=== PATIENT | male | born 1975 ===

== ENCOUNTER 2025-01-03 08:34 | Outpatient (AMB) | payer BC, SELFPAY ==
--- NOTE | 2025-01-03 08:38 | MHC.PC.OV ---
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 Annual physical Intake Note: patient here for new patient visit requesting CPE Barrel Roller Required: No Allergies No Known Allergies Allergy (Verified 01/03/25 09:01) Medication List - Last Reconciled 01/03/25 by Deven Hooper CNP albuterol sulfate 90 mcg/actuation (Ventolin HFA) 2 puffs inhalation Q6H PRN budesonide-formoterol 160-4.5 mcg/actuation (Symbicort) 2 puffs inhalation BID fluocinolone 0.01% 1 appl topical .prn ketoconazole 1% 1 appl topical 2XW lisinopril 10 mg PO DAILY Tobacco use date assessed: 01/03/25 Dental Screening Dental Screen Date: 01/03/25 Did you have a dental visit in the last 12 months?: Yes Did you have a dental problem in the last 6 months where you did not have access to dental care?: No Was dental information given to patient?: Patient has dentist HPI HPI Comments History of Present Illness Details 49-year-old male presents to establish care. He admits to taking his medications as prescribed without adverse reactions. Prior PCP? - [facility] Last office visit/CPE/labs - 1 year ago Acute issue(s) - None Past Medical History - HTN, asthma, adrenal adenoma, right knee meniscus tear, skin moles to back Surgical History - Appendectomy, right knee meniscus tear tear Family History - Dad: HTN, alcohol abuse - MGM: HTN Social History - Nonsmoker. Does not vape. Drinks 2-3 beers or wine once or twice weekly. Denies recreational drug use - Has been making healthy dietary choices. Exercises routinely. Generally sleep well Health maintenance - Last eye exam was over 10 years ago. Referred to Ophthalmology for routine eye exam - Last dental visit was a month ago - Last tetanus vaccine unknow but with the last 10 years - Vaccinated for the flu with his employer last month Specialists - [facility] Medical History (Updated 01/03/25 @ 09:22 by Deven Hooper CNP) Right knee meniscal tear Adrenal adenoma High blood pressure Asthma Surgical History (Updated 01/03/25 @ 08:58 by MEHREEN Lemos) Hx of appendectomy Family History (Updated 01/03/25 @ 08:58 by MEHREEN Lemos) Father Alcohol abuse High blood pressure Mother High blood pressure Social History (Updated 01/03/25 @ 08:47 by MEHREEN Lemos) Housing: House Patient Tobacco Use Status: Never used Tobacco e-Cigarette/Vaping Use: Never Used Second Hand Smoke Exposure: No service: No Current occupational status: employed 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 1. Little interest or pleasure in doing things: not at all 2. Feeling down, depressed, or hopeless: not at all 3. Trouble falling or staying asleep, or sleeping too much: not at all 4. Feeling tired or having little energy: not at all 5. Poor appetite or overeating: not at all 6. Feeling bad about yourself - or that you are a failure or have let yourself or your family down: not at all 7. Trouble concentrating on things, such as reading the newspaper or watching television: not at all 8. Moving or speaking so slowly that other people could have noticed. Or the opposite - being so fidgety or restless that you have been moving around a lot more than usual: not at all 9. Thoughts that you would be better off or of hurting yourself in some way: not at all Total score: 0 Depression Screening Interpretation: Negative Depression Screening Done: Yes 08189 - PHQ-9 Billing: Yes Source: Developed by Drs. Oral Hernandez, Esther Sears, Arthur Munoz and colleagues, with an educational rachel from [employer]. Thrive Questionnaire Date Thrive assessed: 01/03/25 I am a: Patient What is your living situation today?: I have a steady place to live Within the past 12 months, did the food you bought not last and you didn't have the money to get more?: Never true Within the past 12 months, did you worry whether your food would run out before you got money to buy more?: Never true Do you have trouble paying for medicines?: No Do you have trouble getting transportation to medical appointments?: No Do you have trouble paying your heating and electricity bill?: No Do you have trouble taking care of your child, family member or friend?: No Do you have trouble with day-to-day activities such as bathing, preparing meals, shopping, managing finances, etc.?: No Are you currently unemployed and looking for a job?: No Are you interested in more education?: No Please select the resources that you would like help with: None Currently or been in a relationship where the following occur: No concerns reported THRIVE Score: 0 AUDIT C Alcohol Use Questionnaire (AUDIT-C) 1. How often do you have a drink containing alcohol?: 2-4 times a month 2. How many drinks containing alcohol do you have on a typical day when you are drinking?: 3 or 4 3. How often do you have six or more drinks on one occasion?: Less than monthly Total Score: 4 Score Reviewed/Action Taken: Yes AKILAH-7 AMB Questionnaire AKILAH-7 Date AKILAH - 7 assessed: 01/03/25 Feeling nervous, anxious, or on edge: 0 = Not at all Not being able to stop or control worryin = Not at all Worrying too much about different things: 0 = Not at all Trouble relaxin = Not at all Being so restless that it is hard to sit still: 0 = Not at all Becoming easily annoyed or irritable: 0 = Not at all Feeling afraid as if something awful might happen: 0 = Not at all Total AKILAH-7 score (0-4 normal; 5-9 mild; 10-14 moderate; 15-21 severe): 0 Source: Developed by Drs. Oral Hernandez, Esther Sears, Arthur Munoz and colleagues, with an educational rachel from [employer]. AKILAH-7 Assessment Billing AKILAH-7 Assessment Tool: AKILAH-7 Assessment 36297 ACT Questionnaire In the past 4 weeks, how much of the time did your asthma keep you from getting as much done at work, school or at home?: None of the time During the past 4 weeks, how often have you had shortness of breath?: 1-2 times a week During the past 4 weeks, how often did your asthma symptoms wake you up at night or earlier than usual in the morning?: Once or twice per week During the past 4 weeks, how often have you had to use your rescue inhaler or nebulizer medication?: 2-3 times a week How would you rate your asthma control during the past 4 weeks?: Well controlled ACT Interpretation: Positive Score: 20 Review of Systems Const Details: Denies chills, Denies fatigue, Denies fever(s), Denies headache(s) and Denies weakness HEENT Denies change in vision, Denies dizziness, Denies headache(s), Denies hearing loss, Denies nasal congestion, Denies sinus pain, Denies sinus pressure and Denies sore throat Card Denies chest pain, Denies lightheadedness, Denies dyspnea and Denies other (palpitations) Resp Denies cough, Denies dyspnea and Denies wheezing GI Denies abdominal pain, Denies melena, Denies hematochezia, Denies change in bowel habits, Denies dyspepsia and Denies nausea Denies hematuria and Denies dysuria Musc Denies abnormal gait, Denies myalgias, Denies arthralgias, Denies numbness and Denies tingling Skin/Breast Reports skin moles, Denies rash, Denies unusual bruising and Denies wounds Neuro Denies abnormal gait, Denies dizziness, Denies headache(s), Denies memory loss, Denies numbness, Denies Sensory deficit (Neuro), Denies tingling and Denies weakness Psych Denies anxiety, Denies depression and Denies memory loss Endo Denies cold intolerance, Denies fatigue, Denies heat intolerance, Denies polydipsia and Denies polyuria Enmanuel/Lymph Denies easy bleeding and Denies easy bruising Aller/Immun Denies wheezing Physical exam (Primary Care) Vital Signs: Last Vital Signs Temp 97.8 F 01/03/25 08:47 Pulse 66 01/03/25 08:47 Resp 16 01/03/25 08:47 BP 140/74 H 01/03/25 08:47 Pulse Ox 100 01/03/25 08:47 Oxygen Delivery Method Room Air 01/03/25 08:47 BMI result Body Mass Index 33.1 Tobacco/Smoking Status: Tobacco use Status Tobacco use date assessed 01/03/25 01/03/25 08:50 Patient Tobacco Use Status Never used Tobacco 01/03/25 08:50 e-Cigarette/Vaping Use Never Used 01/03/25 08:50 PHQ-9: PHQ-9 Score PHQ-9: Total score 0 01/03/25 08:50 Depression Screening Interpretation: Negative Thrive Assessment: Date of Thrive Assessment Date Thrive assessed 01/03/25 01/03/25 08:50 Currently or been in a relationship where the following occur: No concerns reported Const Other: General: no acute distress, well developed, alert and awake Nutritional Appearance: well nourished Orientation/consciousness: patient oriented x3 HENMT Head: Yes normocephalic and Yes atraumatic Ears: hearing grossly normal bilaterally and TM's normal bilaterally General nose exam: Normal external nose present and Normal nares present Mouth: Normal oral and palatal mucosa present and moist mucous membranes Teeth and gingiva: dentition normal Throat: Yes oropharynx normal Eyes Pupils: Equal, round and reactive pupils present and Pupil accommodation reflex normal EOM: EOMs intact bilaterally Neck Neck: Yes normal visual inspection, Yes no lymphadenopathy and Yes trachea midline Thyroid: Thyroid normal Carotids: no bruits Lymphatic: no lymphadenopathy noted Chest Chest palpation & inspection: normal inspection of the chest Resp Effort & Inspection: normal respiratory effort Auscultation: clear to auscultation bilaterally Cardio Rate: regular rate Rhythm: regular rhythm Heart sounds: S1 normal heart sound present, S2 normal heart sound present, no gallops, no murmurs and no rubs Bruits: no abdominal aortic bruits and no carotid bruits GI Palpation (GI): No Abdominal aortic bruit present, Soft to palpation, nontender, No hepatosplenomegaly present and No Rebound tenderness present Auscultation: normal bowel sounds General: Yes no CVA tenderness Back/Spine/Pelvis Back: no CVA tenderness Cervical Spine: cervical ROM normal and No Cervical spine tenderness Thoracic/Lumbar Spine: thoraco-lumbar ROM normal, No pain with thoraco-lumbar ROM, No thoracic spinal tenderness and No lumbar spinal tenderness Skin General: warm and dry. Normal skin color. Normal skin turgor Lesions: Small/different sizes, light brown, round moles scattered to back, appears benign Rashes: no rashes Trauma: no lacerations or abrasions Wounds: no wounds Nails: normal Neuro General: patient oriented x3, gait normal and CN's II-XI intact bilaterally Cranial nerves: Yes Equal, round and reactive pupils present Cognition (Neuro): normal cognition Gait exam (Neuro): Normal gait present Motor exam (neuro): 5/5 motor strength present throughout Sensory Exam: No Sensory deficit (Neuro) Deep tendon reflexes (DTR's): Right patellar reflex intensity grade: 2+ and Left patellar reflex intensity grade: 2+ Extrem General: Yes normal to inspection, No edema and No calf tenderness Psych Appearance: grossly normal Affect: normal affect Attitude: cooperative Thought process: Normal thought process present Coding Level of Care Code New Pt Level 3 (62263) New Pt Prev Care 40-64y(58277) Diagnoses Normal physical examination, routine Z00.00 High blood pressure I10 Asthma J45.909 Eye exam, routine Z01.00 Numerous skin moles D22.9 Laboratory tests ordered as part of a complete physical exam (CPE) Z00.00 Additional Codes AKILAH-7 Assessment Billing - AKILAH-7 Assessment Tool: AKILAH-7 Assessment 43242 ([id number]) PHQ-9 - 00342 - PHQ-9 Billing: Yes ([id number]) Asthma Control Questionnaire - ACT Interpretation: Positive ([id number]) Assessment & Plan Assessment & Plan (1) Normal physical examination, routine: Code(s): Z00.00 - Encounter for general adult medical examination without abnormal findings Category: Medical Plan: No significant functional limitations noted. Continue current treatment regimen. Healthy diet and routine exercise encouraged. He has been fasting for at least 10 hours and will perform lab work today. Advised to follow-up for telehealth visit in 2-3 weeks for labs review. Return sooner with symptoms or concerns. Verbalized understanding and agreed with the plan. (2) High blood pressure: Code(s): I10 - Essential (primary) hypertension Category: Medical Plan: Resting blood pressure is 110/74, within goal of less than 140/90. Continue current treatment regimen. Low-sodium diet encouraged. Will continue to monitor. Verbalized understanding and agreed with the plan. (3) Asthma: Code(s): J45.909 - Unspecified asthma, uncomplicated Category: Medical Plan: ACT score is 20, well control asthma. Continue current treatment regimen. (4) Eye exam, routine: Code(s): Z01.00 - Encounter for examination of eyes and vision without abnormal findings Category: Medical Plan: Last eye exam was over 10 years ago. Referred to Ophthalmology for routine eye exam. (5) Numerous skin moles: Code(s): D22.9 - Melanocytic nevi, unspecified Category: Medical Plan: Small/different sizes, light brown, round moles scattered to back, appears benign. Followed by Dermatology. (6) Laboratory tests ordered as part of a complete physical exam (CPE): Code(s): Z00.00 - Encounter for general adult medical examination without abnormal findings Category: Medical Plan: Fasting labs ordered as part of a complete physical exam. Advised to fast for at least 10 hours before getting labs drawn. May drink water Verbalized understanding and agreed with treatment plan. Orders: Orders Complete Blood Count Auto Diff Today Z00.00 - Encounter for general adult medical examination without abnormal findings Comprehensive [place]. Panel Fast Today Z00.00 - Encounter for general adult medical examination without abnormal findings Lipid Panel Today Z00.00 - Encounter for general adult medical examination without abnormal findings PSA, Ultra Sensitive Today Z00.00 - Encounter for general adult medical examination without abnormal findings TSH reflex Free T4 Today Z00.00 - Encounter for general adult medical examination without abnormal findings UA CC w/rflx Micro + Cult Today Z00.00 - Encounter for general adult medical examination without abnormal findings Microalbumin, Random (w Creat) Today Z00.00 - Encounter for general adult medical examination without abnormal findings Vitamin D 25-OH Total Today Z00.00 - Encounter for general adult medical examination without abnormal findings Referrals Ophthalmology Referral Z01.00 - Encounter for examination of eyes and vision without abnormal findings
[2025-01-03 08:47] VITALS: BP 140/74; PULSE 66; RESP 16; TEMP 36.6; O2SAT 100; BMI 33.1
--- OUTSIDE RECORDS SUMMARY | 2025-01-03 09:02 | XMS_ITS | Clinical Summary ---
Author Organization [facility] Address [address] [place] [id number] Phone Care Team Providers Care A Auxiliary Name Role Phone Herb Nunes MD Primary Care Provider + Allergies No known active allergies Medications albuterol 90 mcg/actuation inhaler INHALE 2 PUFFS BY MOUTH FOUR TIMES DAILY NEEDED FOR WHEEZING OR 15 MINUTES BEFORE EXERCISE 09/10/2023 Active atorvastatin (LIPITOR) 40 MG tablet Take 1 tablet by mouth every morning. 09/18/2023 Active SYMBICORT 160-4.5 mcg/actuation inhaler Inhale 2 puffs into the lungs 2 (two) times a day. 11/23/2023 Active lisinopril (PRINIVIL,ZESTR IL) 10 MG tablet Take 1 tablet by mouth every morning. 11/29/2023 Active fluocinolone (SYNALAR) 0.01 % external solution APPLY A THIN LAYER TO AFFECTED LAYER TWICE DAILY FOR 2 WEEKS THEN ATKE 1 WEEK OFF TO THE ALMARAZ REPEAT IF NEEDED 10/14/2024 Active ketoconazole (NIZORAL) 2 % shampoo APPLY AND LATHER TO SCALP AND FACE LEAVE ON FOR 3-5 MINUTES USE 2-3 TIMES PER WEEK NEEDED FOR SYMPTOMS 10/14/2024 Active omeprazole (PRILOSEC) 40 MG capsule Take 1 capsule by mouth every morning. 11/12/2024 Active Active Problems Problem Noted Date Diagnosed Date Supraglottic edema 12/08/2023 Encounters Date Type Department Care Team Description 11/29/2024 6:00 PM EDT Office Visit [facility] [address] [address] Annamarie Omalley, ADRIÁN Sore throat (Primary Dx) from Last 3 Months Social History Tobacco Use Types Packs/Day Years Used Date Smoking Tobacco: Never Smokeless Tobacco: Never Education Answer Date Recorded Are you interested in more education? Not on radha e 06/28/2022 Are you concerned about learning? Not on file 06/28/2022 No 06/28/2022 No 06/28/2022 Digital Access Answer Date Recorded No 07/27/2022 No 07/27/2022 Reliable internet access at home? Not on file 07/27/2022 Device with a working camera? Not on file Sex and Gender Information Value Date Recorded Sex Assigned at Not on file Legal Sex Male 8:29 AM EDT Gender Identity Not on file Sexual Orientation Not on file Last Filed Vital Signs Vital Sign Reading Time Taken Comments Blood Pressure 136/94 11/29/2024 6:21 PM EDT Pulse 86 11/29/2024 6:21 PM EDT Temperature 36.8 C (98.2 F) 11/29/2024 6:21 PM EDT Respiratory Rate 16 11/29/2024 6:21 PM EDT Oxygen Saturation 98% 11/29/2024 6:21 PM EDT Inhaled Oxygen Concentration - - Weight 93 kg (205 lb) 11/29/2024 6:21 PM EDT Height - - Body Mass Index - - Plan of Treatment Health Maintenance Due Date Last Done Comments Adult Td,Tdap Booster 1976 DEPRESSION SCREENING 1988 HEPATITIS C SCREENING 1994 HIV ONE-TIME SCREENING (18-6 5 YEARS) 1994 COLOGUARD 2021 COLONOSCOPY 2021 COLORECTAL CANCER SCREENING 2021 FIT TEST 2021 FOBT 2021 SIGMOIDOSCOPY 2021 VIRTUAL COLONOSCOPY 2021 INFLUENZA VACCINE (#1) 2024 COVID-19 VACCINE (2024-2 6 season) 2024 12/25/2020, 04/12/2020, 03/15/2020 CREATININE LEVEL 01/27/2025 01/28/2024 POTASSIUM LEVEL 01/27/2025 01/28/2024 BLOOD PRESSURE 05/29/2025 11/29/2024 LIPID PANEL 01/27/2029 01/28/2024 SMOKING STATUS SCREENING (On ce After 26 Yrs) Completed 11/29/2024 HEPATITIS A VACCINES Aged Out No long er eligible based on patient's age to complete this topic HIB VACCINES Aged Out No longer eligi ble based on patient's age to complete this topic MENINGOCOCCAL VACCINES (ACWY) Aged Out No longer eligible based on patient's age to complete this topic MENINGOCOCCAL VACCINES (B) Aged Out N o longer eligible based on patient's age to complete this topic PNEUMOCOCCAL VACCINES (0-49 years) Aged Out No longer eligible b ased on patient's age to complete this topic Medical Devices Not on file Procedures Procedure Name Priority Date/Time Associated Diagnosis Comments POCT COVID-19 RT-PCR/INFLUENZA A & B/RSV CEPHEID Routine 11/29/2024 6:56 PM EDT Sore throat POCT RAPID STREP A Routine 11/29/2024 6: 30 PM EDT Sore throat LIPID PANEL Routine 01/28/2024 9:26 AM EST Hypercholesteremia Pre-diabetes Hypertension, unspecified type BASIC METABOLIC PANEL (BMP) Routine 01/28/2024 9:26 AM EST Hypercholesteremia Pre-diabetes Hypertension, unspecified type from Last 3 Months or Most Recently Relevant to Health Maintenance Results * POCT COVID-19 RT-PCR/Influenza A & B/RSV (Cepheid) (11/29/2024 6:56 PM EDT) [facility] RSV PCR Negative Negative [facility] SARS-CoV-2 (COVID-19) Negative Negative [facility] POC Influenza A PCR Negative Negative [facility] P[facility] Influenza B PCR Negative Negative [facility] 11/29/2024 6:56 PM EDT 11/29/2024 7:37 PM EDT Annamarie Omalley [employer] [facility] POCT ENTER/EDIT ORDERAB LES Final Result [facility] [address] [address], [facility] [phone] * POCT Rapid Strep A (11/29/2024 6:30 PM EDT) Strep A, PCR Not Detected Not Detected [facility] [place] 11/29/2024 6:30 PM EDT 11/29/2024 6:59 PM EDT Annamarie Omalley [employer] LAB POCT ENTER/EDIT ORDERAB LES Final Result Performing Organization Address [facility] de Phone Number [facility] [address] [address], [facility] [phone] * (ABNORMAL) Lipid panel (01/28/2024 9:26 AM EST) [facility] HDL 35 mg/dL [facility] Comment: Interpretation <40 mg/dL: Low HDL cholesterol (major risk factor for CHD) Greater than or equal to 60 mg/dL: High HDL cholesterol ( negative risk factor for CHD) HDL - cholesterol is affected by a number of factors, e.g. smoking, excerise, hormones, sex and age. CHOLESTEROL 166 0 - 240 mg/dL [facility] TRIGLYCERIDES 178(H) 30 - 160 mg/dL [facility] LDL 95 50 - 129 mg/dL [facility] Comment: LDL levels in terms of risk for coronary heart disease: <100 mg/dL: Optimal 100-129 mg/dL: Near or above optimal 130-159 mg/dL: Borderline high 160-189 mg/dL: High >190 mg/dL: Very High CARDIAC RISK RATIO 4.7 3.4 - 5.0 [facility] Blood 01/28/2024 9:26 AM EST 01/28/2024 9:34 AM EST us Herb Nunes MD LAB BLOOD BKR ORDERABLES Final Result [address] [address] * Basic metabolic panel (01/28/2024 9:26 AM EST) SODIUM 136 133 - 146 mmol/L [facility] CHLORIDE 99 96 - 108 mmol/L [facility] POTASSIUM 4.4 3.3 - 5.1 mmol/L [facility] CO2 28 21 - 35 mmol/L [facility] BUN 18 6 - 19 mg/dL [facility] CREATININE 0.90 0.5 - 1.5 mg/dL [facility] GLUCOSE 97 70 - 99 mg/dL [facility] CALCIUM 10.1 8.4 - 10.3 mg/dL [facility] EGFR 106 >59 mL/min/1.7 3m2 [facility] Comment:Estimated glomerular filtration rate calculated using the CKD-EPI refit equation. ANION GAP 13 10 - 20 mmol/L [facility] Blood 01/28/2024 9:26 AM EST 01/28/2024 9:34 AM EST us Herb Nunes MD LAB BLOOD BKR ORDERABLES Final Result [address] [address] from Last 3 Months or Most Recently Relevant to Health Maintenance Insurance [facility] HMO O Member Subscriber Plan / Payer (Ef fective 2015-Present) Name:Alice Rg Relation to Subscriber:Self Name:ALICE RG Payer ID:Not on file Type:O Address: [address] [place], [place] [id number] Member Subscriber Plan / Payer (Ef fective 2015-Present) Name:Alice Rg Relation to Subscriber:Self Name:ALICE RG Payer ID:Not on file Type:O Address: [address] [place], [place] [address]O O O Member Subscriber Plan / Payer (Ef fective 2015-Present) Name:Alice Rg Relation to Subscriber:Self Name:ALICE RG Payer ID:Not on file Type:O Address: [address] O Care Teams A Auxiliary Relationship Specialty Start Date End Date Herb Nunes MD [address] [place] [id number] PCP - General Internal Medicine 06/10/17 Additional Source Comments The information contained in this document represents components of the legal health record. It is not the complete legal health record.[facility]
--- OUTSIDE RECORDS SUMMARY | 2025-01-03 09:02 | XMS_ITS | Encounter Summary ---
Author Organization [facility] Address [address] [place] [address] Phone Care Team Providers Care Home Supervisor Name Role Phone Herb Nunes MD Primary Care Provider + Reason for Referral * Physical Therapy (Routine) - Closed Specialty Diagnoses / Procedures Referred By Contac t Referred To Contact Physical Therapy Diagnoses Encounter for rehabilitation System, Provider Not In, PhD [id number] [place] [address] Phone: tel: Referral ID Status Reason Start Date Expiration Date Visits Re quested Visits Authorized [id number] Closed 06/12/2017 03/02/2018 25 25 Encounter Details Date Type Department Care Team (Latest Contact Info) Description 06/12/2017 Transcribe Orders [facility] [address] [place] [address] Michael Huitron PA [address] [place] [address] Encounter for rehabilitation (Primary Dx) Social History Tobacco Use Types Packs/Day Years Used Date Smoking Tobacco: Never Assessed Sex and Gender Information Value Date Recorded Sex Assigned at Not on file Legal Sex Male 8:29 AM EDT Gender Identity Not on file Sexual Orientation Not on file documented as of this encounter Plan of Treatment Scheduled Referrals Name Type Priority Associated Diagnoses Orde r Schedule Ambulatory referral to [facility] Physical Therapy Outpatient Referral Routine Encounter for rehabilitation Ordered: 06/12/2017 documented as of this encounter Visit Diagnoses Diagnosis Encounter for rehabilitation- Primary documented in this encounter Care Teams Home Supervisor Relationship Specialty Start Date End Date Herb Nunes MD [address] [place] [address] PCP - General Internal Medicine 06/10/17 documented as of this encounter Additional Source Comments The information contained in this document represents components of the legal health record. It is not the complete legal health record.[facility]
[2025-01-03 09:06] VITALS: BP 110/74
== END 2025-01-03 09:17 | disposition home or self-care (01) ==
LOC: HO.HMCFM 08:35
PROVIDERS: PCP Nurse Practitioner Family; Visit Provider Nurse Practitioner Family
DX: Z00.00 Encounter for general adult medical examination without abnormal findings (principal); I10 Essential (primary) hypertension; J45.909 Unspecified asthma, uncomplicated; D22.9 Melanocytic nevi, unspecified

== ENCOUNTER 2025-01-03 08:34 | Outpatient (REF) | payer BC, SELFPAY ==
--- OUTSIDE RECORDS SUMMARY | 2025-01-03 11:13 | XMS_ITS | Data Portability ---
Author Organization [place] [facility], Allergy Address [address] [place] [phone] Care Team Providers Care Mainframe Software Developer Name Role Phone SHANTANU ENCISO Primary Care Provider [phone] Assessment Encounter Date Assessment Date Assessment LastModified by Organization Details LastModified Time 12/08/2023 12/08/2023 Fiberoptic laryngoscopy today demonstrates normal larynx with no residual supraglottitis. The edema of the right ely epiglottic fold into the right piriform sinus has resolved. Encouraged him to complete the remaining 2 days of amoxicillin and make an attempt at increasing his nutrition to adjust for the several days of decreased food intake. They have rescheduled their trip to [place] secondary to his recent illness [email or web address] Not available 12/08/2023 16:40:36 Plan of Treatment Reminders Order Date Submit Date Provider Last Modified By Organization Details Last Modified Time Details Appointments None record ed. Lab None record ed. Referral None record ed. Procedures None record ed. Surgeries None record ed. Imaging None record ed. Medication Orders None record ed. Patient TargetsNo targets recorded. Patient InstructionsNo instructions recorded. Reason for Referral None Reported. Results Created Date Observation Date Name Description Value Unit Range Abnormal Flag Note LastModifiedBy Organization Detail LastModifiedTime 12/05/1912/04/2023 CT, neck, soft tissu e, w/ contr ast No observ ation record ed. [email or web address] Not Available 12/04 13:50:10 12/08/1912/04/2023 CT, neck, soft tissu e, w/ contr ast No observ ation record ed. [email or web address] Not Available 09/2023 16:41:47 Result Notes None recorded. Problems Name Problem SNOMED Code Status Onset Date Resolution Date Notes Provider Name and Address Organization Details Recorded Time Supraglottic edema 5345229 Active 024 MAURICE BASS MD 100 [facility] 100, [place], [phone], [facility] 16:39:34 Problem Notes None recorded. Procedures Surgical History Date Name Laterality Status Provider Name and Address Organization Details Recorded Time 12/08/2023 FOL_DP completed MAURICE BASS MD 100 [facility], [place], [address], [facility] 12/08/2023 13:42:20 Imaging Results None recorded. Procedure Notes None recorded. Medical Equipment None Reported. Medications Name Sig Start Date Stop Date Status Note LastModified by Organization Details LastModified Time amoxicillin 500 mg capsule active Not Available Not Availab le Not Available atorvastatin 40 mg tablet TAKE 1 TABLET BY MOUTH DAILY active Not Available Not Available No t Available prednisone 20 mg tablet TAKE 2 TABLETS BY MOUTH DAILY FOR 4 DAYS. START MORNING OF 12/05/23 active Not Available Not Available No t Available omeprazole 40 mg capsule,delaye d release TAKE 1 CAPSULE BY MOUTH DAILY active Not Available Not Available No t Available lisinopril 10 mg tablet TAKE 1 TABLET BY MOUTH DAILY active Not Available Not Available No t Available albuterol sulfate HFA 90 mcg/actuation aerosol inhaler INHALE 2 PUFFS BY MOUTH FOUR TIMES DAILY NEEDED FOR WHEEZING OR 15 MINUTES BEFORE EXERCISE active Not Available Not Available No t Available Symbicort 160 mcg-4.5 mcg/actuation HFA aerosol inhaler INHALE 2 PUFFS BY MOUTH TWICE DAILY active Not Available Not Available No t Available Qvar RediHaler 80 mcg/actuation HFA breath activated aerosol INHALE 1 PUFF INTO THE LUNGS TWICE DAILY active Not Available Not Available No t Available Vitals Date Recorded Body height Body mass index (BMI) Body weight Provider Name and Address Organization Details Last Updated DateTime 12/08/2023 170.18 cm 31.3 kg/m2 52996.47 g Abby Diaz [facility] 12/08/2023 16:19:24 Social History None recorded. Functional Status None recorded. Mental Status None recorded. Family History Nothing Reported. Medical History No medical history recorded. Past Encounters Encounter ID Performer Location Encounter Start Date Encounter Closed Date Diagnosis/Indication Diagnosis SNOMED-CT Code Diagnosis ICD10 Code Diagnosis IMO Codes Diagnosis Note MAURICE BASS MD [facility] [address] [place] [address] 12/08/2023 15:19:14 12/08/2023 16:40:19 Supraglottic edema 0474294 J38.4 Health Concerns Section Related Observation LastModified by Organization Detai ls LastModified Time None Recorded Concern Status LastModified by Organization Details LastModified Time None Recorded Advance Directives Directive None Recorded Payers Insurance Date Sequence Insurance Name Policy Number Policy Persaud Covered Member ID Persaud Member ID Guarantor Name 12/08/2023 1 [facility] [id number] Adonis Rg [id number] Adonis Rg Notes Date Note Type Note Provider Name and Address Organization Details Recorded Time 12/08/2023 text/html ROS as noted in the HPI Right AE fold thickeningsore throat x 5 daysurgent care [facility] with improvement after steroidshe is now able to swallow better, but still feels material running down throat tobacco - denieshemoptysis - denies 12/04/2023 CT neck with contrast at [facility] asymmetric soft tissue thickening at the level of area epiglottic fold effacement of right piriform sinus 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
[2025-01-03 11:27] LABS: Appearance Urine Clear; Glucose Urine UA Negative (Negative); PH 7.0 (5.0-9.0); Specific Gravity - Urine <= 1.005 (1.005-1.025)
[2025-01-03 11:28] LABS: MANUAL DIFF FLAG NO
[2025-01-03 11:46] LABS: Hematocrit 45.8 % (42.0-52.0); Hemoglobin 15.1 g/dl (14.0-18.0); Imm Gran Abs Auto 0.03 X10*3/uL (0.00-0.03); Imm Gran Pct Auto 0.7 % (0.0-0.4); Lymphocytes Absolute Auto 1.0 X10*3/uL (1.2-4.9); Mean Corpuscular HGB Conc 33.0 g/dl (31.0-36.0); Mean Corpuscular Hemoglobin 30.0 pg (27.0-33.0); Mean Corpuscular Volume 91.1 fL (80.0-98.0); NRBC Abs Auto 0.000 X10*3/uL (0.0-0.012); NRBC Pct Auto 0.0 /100WBC (0.0-0.2); Platelet Count 280 X10*3/uL (160-400); Red Blood Count 5.03 X10*6/uL (4.60-5.80); White Blood Count 4.6 X10*3/uL (4.8-10.8)
[2025-01-03 12:35] LABS: Alanine Aminotransferase 26 U/L (0-40); Albumin Level 4.7 g/dL (3.5-5.0); Alkaline Phosphatase 78 U/L (39-117); Anion Gap 12 (12-20); Aspartate Amino Transferase 28 U/L (5-37); Blood Urea Nitrogen 16 mg/dL (9-16); Calcium 9.3 mg/dL (8.4-10.2); Carbon Dioxide 29 mmol/L (22-29); Chloride 102 mmol/L (96-108); Cholesterol 240 mg/dL (<200); Estimated Glomerular Filt Rate > 60; HDL Cholesterol 39 mg/dL (>40); Potassium 4.2 mmol/L (3.3-5.1); Sodium 139 mmol/L (135-145); Total Protein 7.4 g/dL (6.5-8.0); Triglycerides 241 mg/dL (<150)
[2025-01-12 01:33] LABS: PSA, Ultra Sensitive 0.33 ng/mL
== END 2025-01-03 08:35 | disposition home or self-care (01) ==
LOC: HO.WFDLDS 08:34
PROVIDERS: PCP Nurse Practitioner Family; Visit Provider Nurse Practitioner Family
DX: Z00.00 Encounter for general adult medical examination without abnormal findings (principal); I10 Essential (primary) hypertension; J45.909 Unspecified asthma, uncomplicated; D22.9 Melanocytic nevi, unspecified; Z12.5 Encounter for screening for malignant neoplasm of prostate
CPT/HCPCS: 36415; 80053; 80061; 81003; 82043; 82306; 82570; 84153; 84443; 85025; 96127; 96160

== ENCOUNTER 2025-01-21 13:49 | Outpatient (AMB) | payer BC, SELFPAY ==
--- NOTE | 2025-01-21 13:27 | A.OFFPC_ITS ---
Intake Visit Reasons: Tele 2-3 wks labs review Intake Note: patient here for 2-3 wks Telehealth follow up for labs review Site Superintendent Required: No Allergies No Known Allergies Allergy (Verified 01/21/25 13:42) Tobacco use date assessed: 01/21/25 Dental Screening Dental Screen Date: 01/21/25 Did you have a dental visit in the last 12 months?: Yes Did you have a dental problem in the last 6 months where you did not have access to dental care?: No Was dental information given to patient?: Patient has dentist HPI HPI Comments History of Present Illness Details 49-year-old male presents [facility] for review of recent lab results. He notes that his mother has h/o HLD. No acute symptoms at this time. [facility] Medical History (Updated 01/21/25 @ 13:28 by Deven Hooper CNP) Right knee meniscal tear Adrenal adenoma High blood pressure Asthma Surgical History (Updated 01/03/25 @ 08:58 by MEHREEN Lemos) Hx of appendectomy Family History (Updated 01/03/25 @ 08:58 by MEHREEN Lemos) Father Alcohol abuse High blood pressure Mother High blood pressure Social History (Updated 01/03/25 @ 08:47 by MEHREEN Lemos) Housing: House Patient Tobacco Use Status: Never used Tobacco e-Cigarette/Vaping Use: Never Used Second Hand Smoke Exposure: No service: No Current occupational status: employed 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 Current occupational exposures/hazards: No Cognitive needs: No Hearing needs: No Vision needs: No Questionnaire Thrive Questionnaire Date Thrive assessed: 12/31/24 I am a: Patient What is your living situation today?: I have a steady place to live Within the past 12 months, did the food you bought not last and you didn't have the money to get more?: Never true Within the past 12 months, did you worry whether your food would run out before you got money to buy more?: Never true Do you have trouble paying for medicines?: No Do you have trouble getting transportation to medical appointments?: No Do you have trouble paying your heating and electricity bill?: No Do you have trouble taking care of your child, family member or friend?: No Do you have trouble with day-to-day activities such as bathing, preparing meals, shopping, managing finances, etc.?: No Are you currently unemployed and looking for a job?: No Are you interested in more education?: No Please select the resources that you would like help with: None Currently or been in a relationship where the following occur: No concerns reported THRIVE Score: 0 AKILAH-7 AMB Questionnaire AKILAH-7 Date AKILAH - 7 assessed: 01/03/25 Source: Developed by Drs. Oral Hernandez, Esther Sears, Arthur bal nd colleagues, with an educational rachel from [employer]. Review of Systems Const Details: Denies chills, Denies fatigue, Denies fever(s), Denies headache(s) and Denies weakness Cardiac Denies chest pain, Denies claudication, Denies leg edema, Denies lightheadedness, Denies palpitations, Denies dyspnea, Denies dyspnea on exertion, Denies orthopnea and Denies other (Loss of consciousness) Resp Denies cough, Denies excessive phlegm production, Denies dyspnea, Denies dyspnea on exertion, Denies snoring and Denies wheezing Physical exam (Primary Care) Tobacco/Smoking Status: Tobacco use Status Tobacco use date assessed 01/03/25 01/21/25 13:31 Patient Tobacco Use Status Never used Tobacco 01/21/25 13:31 e-Cigarette/Vaping Use Never Used 01/21/25 13:31 Thrive Assessment: Date of Thrive Assessment Date Thrive assessed 12/31/24 01/21/25 13:31 Currently or been in a relationship where the following occur: No concerns reported Const Other: Patient is alert and oriented x4 Telehealth Telehealth Telehealth Platform: Telephone Location of provider rendering services: practice address Location of patient: address on file Patient Identification confirmed using: Name, : Yes Telehealth method: voice only Patient verbally consented to treatment: Yes Patient verbally consented to billing insurance company: Yes Patient informed of any privacy concerns related to visit: Yes Coding Level of Care Code Tele Est Pt Level 3 (67320) Diagnoses Hyperlipidemia E78.5 Elevated fasting glucose R73.01 Leukocytosis D72.829 Time Spent (min) 10 Assessment & Plan Assessment & Plan (1) Hyperlipidemia: Code(s): E78.5 - Hyperlipidemia, unspecified Category: Medical Plan: Recent triglycerides, total cholesterol, and LDL levels are elevated, 241, 240, and 153 respectively, HDL is slightly low, 39. Advised to limit foods high in saturated fat and avoid foods high in trans fat. Routine exercise encouraged. Fast for 10-12 hours, may drink water, and perform lipid panel blood work a few days before next visit. Follow-up in 2 months for transfer of care with a new provider within the practice. Return sooner with symptoms or concerns. Verbalized understanding and agreed with the plan. (2) Elevated fasting glucose: Code(s): R73.01 - Impaired fasting glucose Category: Medical Plan: Recent fasting glucose is slightly elevated, 101. Healthy diet, including low carbs and routine exercise encouraged. Will recheck fasting glucose. Verbalized understanding and agreed with the plan. (3) Leukocytosis: Code(s): D72.829 - Elevated white blood cell count, unspecified Category: Medical Plan: Recent WBC slightly elevated, 4.6. Equivocal. Will monitor CBC annually or if clinically indicated. Verbalized understanding and agreed with the plan. Orders: Orders Lipid Panel 2 Months E78.5 - Hyperlipidemia, unspecified Glucose Fasting 2 Months R73.01 - Impaired fasting glucose
--- OUTSIDE RECORDS SUMMARY | 2025-01-21 14:21 | XMS_ITS | Encounter Summary ---
Author Organization [facility] Address [address] [place] [address] Phone Care Team Providers Care Wheel Inspector Name Role Phone Herb Nunes MD Primary Care Provider + Reason for Referral * Physical Therapy (Routine) - Closed Specialty Diagnoses / Procedures Referred By Contac t Referred To Contact Physical Therapy Diagnoses Encounter for rehabilitation System, Provider Not In, PhD [phone] [place] [address] Phone: tel: Referral ID Status Reason Start Date Expiration Date Visits Re quested Visits Authorized [id number] Closed 06/12/2017 03/02/2018 25 25 Encounter Details Date Type Department Care Team (Latest Contact Info) Description 06/12/2017 Transcribe Orders [facility] [address] [place] [address] Michael Huitron PA [address] [place] [address] Encounter for rehabilitation (Primary Dx) Social History [...] Primary documented in this encounter Care Teams Wheel Inspector Relationship Specialty Start Date End Date Herb Nunes MD [address] [place] [address] PCP - General Internal Medicine 06/10/17 documented as of this encounter Additional Source Comments The information contained in this document represents components of the legal health record. It is not the complete legal health record.[facility]
--- OUTSIDE RECORDS SUMMARY | 2025-01-21 14:21 | XMS_ITS | Clinical Summary ---
Author Organization [facility] Address [address] [place] [address] Phone Care Team Providers Care Bowling Alley Refinisher Name Role Phone Herb Nunes MD Primary [...] Office Visit [facility] [address] [address] Annamarie Omalley, ADRIÁN Sore throat (Primary Dx) [...] & B/RSV (Cepheid) (11/29/2024 6:56 PM EDT) [facility] RSV PCR Negative Negative [facility] SARS-CoV-2 (COVID-19) Negative Negative [facility] POC Influenza A PCR Negative Negative [facility] POC Influenza B PCR Negative Negative [facility] 11/29/2024 6:56 PM EDT 11/29/2024 7:37 PM EDT Annamarie Omalley JUVEN[employer] JUSTICE SPECIALIST LAB POCT ENTER/EDIT ORDERAB LES Final Result [facility] [address] [address], [facility] [phone] * POCT Rapid Strep A (11/29/2024 6:30 PM EDT) Strep A, PCR Not Detected Not Detected [facility] 11/29/2024 6:30 PM EDT 11/29/2024 6:59 PM EDT Annamarie Omalley JUVENILE JUSTICE SPECIALIST LAB POCT ENTER/EDIT ORDERAB LES Final Result Performing Organization Address [facility] de Phone Number [facility] AT [address] [address], [facility] [phone] * (ABNORMAL) Lipid panel (01/28/2024 9:26 AM EST) [facility] HDL 35 mg/dL [facility] Comment: Interpretation <40 mg/dL: Low HDL cholesterol (major risk factor for CHD) Greater than or equal to 60 mg/dL: High HDL cholesterol ( negative risk factor for CHD) HDL - cholesterol is affected by a number of factors, e.g. smoking, excerise, hormones, sex and age. CHOLESTEROL 166 0 - 240 mg/dL [facility] TRIGLYCERIDES 178(H) 30 - 160 mg/dL [facility] LDL 95 50 - 129 mg/dL [facility] Comment: LDL levels in terms of risk for coronary heart disease: <100 mg/dL: Optimal 100-129 mg/dL: Near or above optimal 130-159 mg/dL: Borderline high 160-189 mg/dL: High >190 mg/dL: Very High CARDIAC RISK RATIO 4.7 3.4 - 5.0 [facility] Blood 01/28/2024 9:26 AM EST 01/28/2024 9:34 AM EST us Herb Nunes MD LAB BLOOD BKR ORDERABLES Final Result [address] [address] * Basic metabolic panel (01/28/2024 9:26 AM EST) SODIUM 136 133 - 146 mmol/L [facility] CHLORIDE 99 96 - 108 mmol/L [facility] POTASSIUM 4.4 3.3 - 5.1 mmol/L [facility] CO2 28 21 - 35 mmol/L [facility] BUN 18 6 - 19 mg/dL [facility] CREATININE 0.90 0.5 - 1.5 mg/dL [facility] GLUCOSE 97 70 - 99 mg/dL [facility] CALCIUM 10.1 8.4 - 10.3 mg/dL [facility] EGFR 106 >59 mL/min/1.7 3m2 [facility] Comment:Estimated glomerular filtration rate calculated using the CKD-EPI refit equation. ANION GAP 13 10 - 20 mmol/L [facility] Blood 01/28/2024 9:26 AM EST 01/28/2024 9:34 AM EST us Herb Nunes MD LAB BLOOD BKR ORDERABLES Final Result [address] [address] from Last 3 Months or Most Recently Relevant to Health Maintenance Insurance [facility] H[facility] O Member Subscriber Plan / Payer (Ef fective 2015-Present) Name:Alice Rg Relation to Subscriber:Self Name:ALICE RG Payer ID:Not on file Type:O Address: [address] [place], [place] [address]O Member Subscriber Plan / Payer (Ef fective 2015-Present) Name:Alice Rg Relation to Subscriber:Self Name:ALICE RG Payer ID:Not on file Type:O Address: [address] [place], [place] [address] O O Member Subscriber Plan / Payer (Ef fective 2015-Present) Name:Alice Rg Relation to Subscriber:Self Name:ALICE RG Payer ID:Not on file Type:O Address: [address] O Care Teams Bowling Alley Refinisher Relationship Specialty Start Date End Date Herb Nunes MD [address] [place] [address] PCP - General Internal Medicine 06/10/17 Additional Source Comments The information contained in this document represents components of the legal health record. It is not the complete legal health record.[facility]
== END 2025-01-21 14:22 | disposition home or self-care (01) ==
LOC: HO.HMCFM 13:50
PROVIDERS: PCP Nurse Practitioner Family; Visit Provider Nurse Practitioner Family
DX: E78.5 Hyperlipidemia, unspecified (principal); R73.01 Impaired fasting glucose; D72.829 Elevated white blood cell count, unspecified